=== PATIENT | male | born 1965 | race Caucasian/White ===

== ENCOUNTER 2020-08-28 11:23 | Inpatient (IN) | payer MEDICARE, OTHER ==
[2020-08-28 12:10] LABS: Basophils % (A) 1 %; Eosinophils % (A) 0 %; HCT 33.2 % (39.0-53.0); HGB 11.2 gm/dL (13.0-17.5); Lymphocytes # (A) 0.5 k/uL (1.0-4.8); Lymphocytes % (A) 11 %; MCH 30.3 pg (25.0-35.0); MCHC 33.7 g/dL (31.0-37.0); MCV 89.8 fL (80.0-100.0); Mean Platelet Volume 7.8; Monocytes # (A) 0.3 k/uL (0-1.0); Monocytes % (A) 8 %; Neutrophils # (A) 3.2 k/uL (1.3-7.7); Neutrophils % (A) 78 %; RDW 15.2 % (11.5-15.5); WBC 4.1 k/uL (3.8-10.6)
[2020-08-28 12:25] LABS: Calcium 7.8 mg/dL (8.4-10.2); Potassium 4.6 mmol/L (3.5-5.1); Total Bilirubin 1.4 mg/dL (0.2-1.3); Total Protein 6.6 g/dL (6.3-8.2)
[2020-08-28 12:40] LABS: Platelet Count 81 k/uL (150-450)
[2020-08-28] MEDS ORDERED: HEPARIN SOD,PORK IN 0.45% NACL 25,000 UNIT in 0.45% NACL 1 250ML.BAG IV SCH (13:15)
[2020-08-28] MEDS ORDERED: HEPARIN SODIUM,PORCINE 5,000 UNIT/ML 1 ML VIAL IV PRN (13:15)
--- NOTE | 2020-08-28 13:15 | ED ---
General Adult HPI - General Chief complaint: Chest Pain Stated complaint: NSTEMI/COVID+ Time Seen by Provider: 08/28/20 11:25 Source: patient, EMS Mode of arrival: EMS Limitations: no limitations - History of Present Illness Initial comments: Patient is a 55-year-old male with past medical history of diabetes, end-stage renal disease on hemodialysis Tuesday, CHF, A. fib on [place] who presents to the emergency room with reported nausea and vomiting. Patient is transferred from The hospital. He states that he has had generalized we akness, decreased by mouth intake and nausea with vomiting. Patient went into the hospital on Tuesday and was diagnosed with Covid. States the symptoms first started 9 days ago. He was discharged home however states he has not been fairing well at home. He reports to increasing symptoms. Denies any cough, shortness of breath or chest pain. He did receive his regular dialysis session yesterday but states that they took off less fluid he has his dry weight was lower. Upon evaluation in the emergency department [facility] they found the patient held elevated troponin. Patient was transferred for higher level of care and cardiology evaluation. Patient arrives denying any chest pain or shor tness of breath. Review of the patient's chart from [facility] demonstrates that the patients troponin has never been that high in the setting of renal failure. - Related Data Allergies Allergy/AdvReac Type Severity Reaction Status Date / Time codeine AdvReac Nausea & Verified 08/28/20 11:39 Vomiting Review of Systems ROS Statement: Those systems with pertinent positive or pertinent negative responses have been documented in the HPI. ROS Other: All systems not noted in ROS Statement are negative. Past Medical History Past Medical History: Atrial Fibrillation, Diabetes Mellitus, Dialysis, Hypertension, Renal Disease Additional Past Medical History / Comment(s): legally blind History of Any Multi-Drug Resistant Organisms: MRSA Date of last positivie culture/infection: 2009 MDRO Source:: nose Past Surgical History: Heart Catheterization With Stent Additional Past Surgical History / Comment(s): fistula-right forearm Past Psychological History: Depression Smoking Status: Never smoker Past Alcohol Use History: None Reported Past Drug Use History: None Reported General Exam Limitations: no limitations Course Vital Signs 08/28/20 08/28/20 08/28/20 11:27 13:00 14:15 Temperature 98.3 F Pulse Rate 68 59 L 61 Respiratory 17 16 17 Rate Blood Pressure 114/65 108/57 106/58 O2 Sat by Pulse 99 99 100 Oximetry EKG Findings - EKG Comments: EKG Findings:: EKG demonstrates A. fib with a rate of 66. QRS 98. QTC of 457. No acute ST segment elevations or depressions Medical Decision Making - Medical Decision Making Upon arrival patient is placed in a trauma bay 1. Through history and physical exam was performed. Laboratory studies were conducted and a 12-lead EKG was performed. I did review the patient's chart. Troponin is stable around 0.3. A dmission orders were placed. Discussed case with Dr. Brooks. Will placed consults for pulmonology, nephrology and cardiology. Patient remained in stable condition awaiting a bed - Lab Data Result diagrams: 08/28/20 11:53 08/28/20 11:53 Lab Results 08/28/20 08/28/20 08/28/20 Range/Units 11:53 11:53 11:53 WBC 4.1 (3.8-10.6) k/uL RBC 3.70 L (4.30-5.90) m/uL Hgb 11.2 L (13.0-17.5) gm/dL Hct 33.2 L (39.0-53.0) % MCV 89.8 (80.0-100.0) fL MCH 30.3 (25.0-35.0) pg MCHC 33.7 (31.0-37.0) g/dL RDW 15.2 (11.5-15.5) % Plt Count 81 L (150-450) k/uL MPV 7.8 Neutrophils % 78 % Lymphocytes % 11 % Monocytes % 8 % Eosinophils % 0 % Basophils % 1 % Neutrophils # 3.2 (1.3-7.7) k/uL Lymphocytes # 0.5 L (1.0-4.8) k/uL Monocytes # 0.3 (0-1.0) k/uL Eosinophils # 0.0 (0-0.7) k/uL Basophils # 0.0 (0-0.2) k/uL Manual Slide Review Performed RBC Morphology Normal Sodium 134 L (137-145) mmol/L Potassium 4.6 (3.5-5.1) mmol/L Chloride 95 L (98-107) mmol/L Carbon Dioxide 29 (22-30) mmol/L Anion Gap 10 mmol/L BUN 46 H (9-20) mg/dL Creatinine 8.80 H* (0.66-1.25) mg/dL Est GFR (CKD-EPI)AfAm 7 (>60 ml/min/1.73 sqM) Est GFR (CKD-EPI)NonAf 6 (>60 ml/min/1.73 sqM) Glucose 136 H (74-99) mg/dL Calcium 7.8 L (8.4-10.2) mg/dL Total Bilirubin 1.4 H (0.2-1.3) mg/dL AST 234 H (17-59) U/L ALT 82 H (4-49) U/L Alkaline Phosphatase 72 (38-126) U/L Troponin I 0.350 H* (0.000-0.034) ng/mL NT-Pro-B Natriuret Pep pg/mL Total Protein 6.6 (6.3-8.2) g/dL Albumin 3.0 L (3.5-5.0) g/dL 08/28/20 Range/Units 11:53 WBC (3.8-10.6) k/uL RBC (4.30-5.90) m/uL Hgb (13.0-17.5) gm/dL Hct (39.0-53.0) % MCV (80.0-100.0) fL MCH (25.0-35.0) pg MCHC (31.0-37.0) g/dL RDW (11.5-15.5) % Plt Count (150-450) k/uL MPV Neutrophils % % Lymphocytes % % Monocytes % % Eosinophils % % Basophils % % Neutrophils # (1.3-7.7) k/uL Lymphocytes # (1.0-4.8) k/uL Monocytes # (0-1.0) k/uL Eosinophils # (0-0.7) k/uL Basophils # (0-0.2) k/uL Manual Slide Review RBC Morphology Sodium (137-145) mmol/L Potassium (3.5-5.1) mmol/L Chloride (98-107) mmol/L Carbon Dioxide (22-30) mmol/L Anion Gap mmol/L BUN (9-20) mg/dL Creatinine (0.66-1.25) mg/dL Est GFR (CKD-EPI)AfAm (>60 ml/min/1.73 sqM) Est GFR (CKD-EPI)NonAf (>60 ml/min/1.73 sqM) Glucose (74-99) mg/dL Calcium (8.4-10.2) mg/dL Total Bilirubin (0.2-1.3) mg/dL AST (17-59) U/L ALT (4-49) U/L Alkaline Phosphatase (38-126) U/L Troponin I (0.000-0.034) ng/mL NT-Pro-B Natriuret Pep 57998 pg/mL Total Protein (6.3-8.2) g/dL Albumin (3.5-5.0) g/dL Disposition Clinical Impression: NSTEMI (non-ST elevated myocardial infarction), COVID-19 Disposition: ADMITTED IP TO THIS [facility] Condition: Stable Is patient prescribed a controlled substance at d/c from ED?: No Decision to Admit Reason: Admit from EC Decision Date: 08/28/20 Decision Time: 13:17
[2020-08-28] MEDS ORDERED: NALOXONE 0.4 MG/ML 1 ML VIAL IV PRN (13:34)
--- NOTE | 2020-08-28 13:55 | P.HPIM ---
History of Present Illness Chief Complaint: Nausea and vomiting This is a 55-year-old white man who was diagnosed with covert 19 infection last week Tuesday after he was exposed to people with covert 19 at a mosque activity. He has end-stage renal disease and received dialysis yesterday. He has had few episodes of diaphoresis but has not had fever at home. He denies chest pain or shortness of breath. He has been nauseated, he had some dry cough, he vomited twice today. He denies diarrhea. He has had changes in his taste and smell. He has not required oxygen earlier but today he is on 2 L of oxygen. He denies wheezing. Past Medical History Past Medical History: Atrial Fibrillation, Diabetes Mellitus, Dialysis, Hypertension, Renal Disease Additional Past Medical History / Comment(s): legally blind History of Any Multi-Drug Resistant Organisms: MRSA Date of last positivie culture/infection: 2009 MDRO Source:: nose Past Surgical History: Heart Catheterization With Stent Additional Past Surgical History / Comment(s): fistula-right forearm Past Psychological History: Depression Smoking Status: Never smoker Past Alcohol Use History: None Reported Past Drug Use History: None Reported Medications and Allergies Allergies Allergy/AdvReac Type Severity Reaction Status Date / Time codeine AdvReac Nausea & Verified 08/28/20 11:39 Vomiting Physical Exam Vitals: Vital Signs Temp Pulse Resp BP Pulse Ox 08/28/20 11:27 98.3 F 68 17 114/65 99 Intake and Output 08/27/20 08/28/20 08/28/20 22:59 06:59 14:59 Other: Weight 109 kg Constitutional: No acute distress, conversant, pleasant Eyes: Anicteric sclerae, moist conjunctiva, no lid-lag, PERRLA ENMT: NC/AT,Oropharynx clear, no erythema, exudates Neck:Supple, FROM, no masses, or JVD, No carotid bruits; No thyromegaly Lungs: Clear to auscultation, Clear to percussion, Normal respiratory effort, no accessory muscle use Cardiovascular: Heart regular in rate and rhythm, No murmurs, gallops, or rubs no peripheral edema Abdominal: Soft Nontender, nom distended, no guarding, no rebound or rigidity, Normoactive bowel sounds No hepatomegaly Skin: Normal temperature, tone, texture, turgor, No induration No subcutaneous nodules, No rash, lesions, No ulcers Extremities:No digital cyanosis No clubbing, no edema Psychiatric: Alert and oriented to person, place and time, Appropriate affect Intact judgement Neuro: Muscles Strength 5/5 in all 4 extremities, Sensation to light touch grossly present throughout, Cranial nerves II-XII grossly intact. No focal sensory deficits Results CBC & Chem 7: 08/28/20 11:53 08/28/20 11:53 Labs: Abnormal Lab Results - Last 24 Hours (Table) 08/28/20 08/28/20 08/28/20 Range/Units 11:53 11:53 11:53 RBC 3.70 L (4.30-5.90) m/uL Hgb 11.2 L (13.0-17.5) gm/dL Hct 33.2 L (39.0-53.0) % Plt Count 81 L (150-450) k/uL Lymphocytes # 0.5 L (1.0-4.8) k/uL Sodium 134 L (137-145) mmol/L Chloride 95 L (98-107) mmol/L BUN 46 H (9-20) mg/dL Creatinine 8.80 H* (0.66-1.25) mg/dL Glucose 136 H (74-99) mg/dL Calcium 7.8 L (8.4-10.2) mg/dL Total Bilirubin 1.4 H (0.2-1.3) mg/dL AST 234 H (17-59) U/L ALT 82 H (4-49) U/L Troponin I 0.350 H* (0.000-0.034) ng/mL Albumin 3.0 L (3.5-5.0) g/dL Assessment and Plan Plan: 1. 1. Acute: 19 infection with hypoxia requiring 2 L of oxygen: Oxygen, bronchodilators, dexamethasone, obtain chest x-ray, pulmonology consultation. Check LDH, d-dimer, ferritin and Procalcitonin . 2. Elevated troponin, likely associated with end-stage renal disease as well as overnight the infection: Continue to trend cardiac enzymes, cardiology consultation. 3. End-stage renal disease on hemodialysis secondary to hypertension and diabetes: Continue hemodialysis, consult nephrology. 4. Diabetes type 2 with end-stage renal disease: Place on insulin sliding scale 5. Chronic atrial fibrillation: Continue outpatient medications and monitor, cardiology consultation. 6. Mild elevation in LFTs likely associated with: 19 infection: Continue to check liver enzymes. 7. Thrombocytopenia of unknown chronicity, platelets 81, monitor Admit to inpatient DVT prophylaxis: SCDs in the setting of thrombocytopenia Disposition: Home once clinically stable
[2020-08-28] MEDS: DEXAMETHASONE SOD PHOSPHATE 10 MG/ML 1 ML VIAL IV SCH (14:26)
[2020-08-28 14:27] LABS: Glucose,Whole Blood 125 mg/dL (75-99)
[2020-08-28] MEDS: ALBUTEROL HFA INHALER INHALATION SCH ×2 (14:31→22:06)
[2020-08-28 14:47] LABS: Basophils % (A) 0 %; Eosinophils % (A) 0 %; HCT 34.1 % (39.0-53.0); HGB 10.9 gm/dL (13.0-17.5); Lymphocytes # (A) 0.6 k/uL (1.0-4.8); Lymphocytes % (A) 15 %; MCH 29.1 pg (25.0-35.0); MCV 90.9 fL (80.0-100.0); Mean Platelet Volume 8.2; Monocytes # (A) 0.3 k/uL (0-1.0); Monocytes % (A) 7 %; Neutrophils # (A) 2.8 k/uL (1.3-7.7); Neutrophils % (A) 75 %; RBC 3.75 m/uL (4.30-5.90); RDW 15.6 % (11.5-15.5); WBC 3.7 k/uL (3.8-10.6)
[2020-08-28 14:51] LABS: Platelet Count 79 k/uL (150-450)
--- NOTE | 2020-08-28 15:09 | XR ---
EXAMINATION TYPE: XR chest 1V DATE OF EXAM: 08/28/2020 CLINICAL HISTORY: Difficulty breathing covid 19 infection progress study. TECHNIQUE: Single AP portable upright view of the chest is obtained. COMPARISON: Outside chest x-ray earlier today FINDINGS: Low lung volumes and chronic parenchymal changes with patchy left greater than right bibas ilar opacities. Stable mild cardiomegaly. Osseous structures are intact. IMPRESSION: Overall stable findings, low lung volumes and cardiomegaly with patchy left greater tracey n right bibasilar acute infiltrate and/or atelectasis.
[2020-08-28 15:24] LABS: Albumin 2.8 g/dL (3.5-5.0); Calcium 7.6 mg/dL (8.4-10.2); Potassium 4.6 mmol/L (3.5-5.1); Total Bilirubin 1.4 mg/dL (0.2-1.3); Total Protein 6.2 g/dL (6.3-8.2)
[2020-08-28 16:46] LABS: Glucose,Whole Blood 161 mg/dL (75-99)
[2020-08-28] MEDS: INSULIN ASPART (NovoLOG) 100 UNIT/ML VIAL SQ SCH ×2 (16:57→20:54)
[2020-08-28 20:18] LABS: Glucose,Whole Blood 187 mg/dL (75-99)
[2020-08-28] MEDS: FENOFIBRATE 160 MG TAB PO SCH (23:58)
[2020-08-29 00:06] LABS: Ferritin 4972.2 ng/mL (22.0-322.0)
[2020-08-29] MEDS: ALBUTEROL HFA INHALER INHALATION SCH ×5 (02:37→21:19)
[2020-08-29 06:32] LABS: Glucose,Whole Blood 112 mg/dL (75-99)
[2020-08-29] MEDS: INSULIN ASPART (NovoLOG) 100 UNIT/ML VIAL SQ SCH ×4 (06:32→20:32)
[2020-08-29] MEDS: PANTOPRAZOLE 40 MG TABLET PO SCH (08:23)
[2020-08-29] MEDS: ATORVASTATIN 40 MG TAB PO SCH (08:24)
[2020-08-29] MEDS: CLOPIDOGREL 75 MG TAB PO SCH (08:24)
[2020-08-29] MEDS: EZETIMIBE 10 MG TAB PO SCH (08:24)
[2020-08-29] MEDS: DEXAMETHASONE SOD PHOSPHATE 10 MG/ML 1 ML VIAL IV SCH (08:24)
[2020-08-29 09:42] LABS: Basophils % (A) 0 %; Eosinophils % (A) 0 %; HCT 33.8 % (39.0-53.0); HGB 11.1 gm/dL (13.0-17.5); Lymphocytes # (A) 0.5 k/uL (1.0-4.8); Lymphocytes % (A) 14 %; MCHC 32.9 g/dL (31.0-37.0); MCV 91.1 fL (80.0-100.0); Mean Platelet Volume 7.9; Monocytes # (A) 0.2 k/uL (0-1.0); Monocytes % (A) 6 %; Neutrophils # (A) 2.7 k/uL (1.3-7.7); Neutrophils % (A) 78 %; RBC 3.71 m/uL (4.30-5.90); RDW 15.2 % (11.5-15.5); WBC 3.4 k/uL (3.8-10.6)
[2020-08-29 09:51] LABS: Platelet Count 75 k/uL (150-450)
[2020-08-29 09:53] LABS: INR 1.4 (<1.2); Prothrombin Time 14.2 sec (9.0-12.0)
--- NOTE | 2020-08-29 10:16 | ECHOF ---
Referral Reason:abn troponin MEASUREMENTS -------- HEIGHT: 180.3 cm WEIGHT: 108.9 kg BP: 117/65 IVSd: 1.8 cm (0.6 - 1.1) LVIDd: 5.1 cm (3.9 - 5.3) LVPWd: 2.2 cm (0.6 - 1.1) EDV(Teich): 126 ml IVSs: 2.2 cm LVIDs: 3.1 cm LVPWs: 1.8 cm %IVS Thck: 18 % ESV(Teich): 37 ml EF(Teich): 70 % %FS: 40 % SV(Teich): 89 ml LALs A4C: 7.7 cm LAAs A4C: 35.1 cm LAESV A-L A4C: 136 ml LAESV MOD A4C: 127 ml Ao Diam: 3.3 cm (2.0 - 3.7) AV Cusp: 1.7 cm (1.5 - 2.6) MV E Jerrell: 0.99 m/s MV DecT: 275 ms MV Dec Denali: 3.6 m/s MV A Jerrell: 0.80 m/s MV E/A Ratio: 1.24 MV PHT: 80 ms LVOT Vmax: 0.81 m/s LVOT maxP.62 mmHg AV Vmax: 1.40 m/s AV maxP.86 mmHg TR Vmax: 2.32 m/s TR maxP.46 mmHg RAP: 5.00 mmHg RVSP: 26.46 mmHg FINDINGS -------- Sinus rhythm. This was a technically difficult study with suboptimal views. The left ventricular size is normal. There is severe concentric left ventricular hypertrophy. Ove rall left ventricular systolic function is low-normal with, an EF between 50 - 55 %. The RV was not well visualized. The left atrium was not well visualized. The right atrium was not well visualized. 5.0mg of Lumason was utilized for enhancement of images The aortic valve was not well visualized. Aortic valve is trileaflet and is moderately thickened. There is no evidence of aortic regurgitation. There is no evidence of aortic stenosis. Mild mitral annular calcification present. No mitral regurgitation. Mild tricuspid regurgitation present. There is no evidence of pulmonary hypertension. The right v entricular systolic pressure, as measured by Doppler, is 26.46mmHg. The pulmonic valve was not well visualized. The aortic root size is normal. IVC Not well visulized. There is no pericardial effusion. CONCLUSIONS -------- 1. There is severe concentric left ventricular hypertrophy. 2. Overall left ventricular systolic function is low-normal with, an EF between 50 - 55 %. 3. Aortic valve is trileaflet and is moderately thickened. 4. Mild mitral annular calcification present. 5. Mild tricuspid regurgitation present. 6. There is no pericardial effusion. 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
[2020-08-29 10:20] LABS: Albumin 2.8 g/dL (3.5-5.0); Calcium 7.5 mg/dL (8.4-10.2); Potassium 4.4 mmol/L (3.5-5.1); Total Bilirubin 1.5 mg/dL (0.2-1.3)
[2020-08-29] MEDS ORDERED: HEPARIN SODIUM,PORCINE 5,000 UNIT/ML 1 ML VIAL ONE (11:12)
--- NOTE | 2020-08-29 11:24 | P.PN ---
Subjective Progress Note Date: 08/29/20 Feels ok , no cp no abd pain , no sob not on oxygen Objective - Vital Signs Vital signs: Vital Signs Temp 98.7 F 08/29/20 08:00 Pulse 69 08/29/20 08:00 Resp 20 08/29/20 08:00 BP 138/73 08/29/20 08:00 Pulse Ox 100 08/29/20 08:00 Intake & Output 08/28/20 08/29/20 08/29/20 18:59 06:59 18:59 Intake Total 123.606 Balance 123.606 Weight 109 kg 106.8 kg Intake: Intake, IV Titration 123.606 Amount Heparin Sod,Pork in 0.45% 123.606 NaCl 25,000 unit In 0.45 % NaCl 1 250ml.bag @ 9. 174 UNITS/KG/HR 10 mls/hr IV .Q24H [facility] Rx#: [id number] Other: # Voids 1 1 1 # Bowel Movements 1 1 - Exam Constitutional: No acute distress, conversant, pleasant Eyes: Anicteric sclerae, moist conjunctiva, no lid-lag, PERRLA ENMT: NC/AT,Oropharynx clear, no erythema, exudates Neck:Supple, FROM, no masses, or JVD, No carotid bruits; No thyromegaly Lungs: Clear to auscultation, Clear to percussion, Normal respiratory effort, no accessory muscle use Cardiovascular: Heart regular in rate and rhythm, No murmurs, gallops, or rubs no peripheral edema Abdominal: Soft Nontender, nom distended, no guarding, no rebound or rigidity, Normoactive bowel sounds Skin: Normal temperature, tone, texture, turgor, No induration No subcutaneous nodules, No rash, lesions, No ulcers Extremities:No digital cyanosis No clubbing, Pedal pulses intact and symmetrical Radial pulses intact and symmetrical Normal gait and station, No calf tenderness Psychiatric: Alert and oriented to person, place and time, Appropriate affect Intact judgement Neuro: Muscles Strength 5/5 in all 4 extremities, Sensation to light touch grossly present throughout, Cranial nerves II-XII grossly intact. No focal senso ry deficits - Labs CBC & Chem 7: 08/29/20 08:52 08/29/20 08:52 Labs: Abnormal Lab Results - Last 24 Hours (Table) 08/28/20 08/28/20 08/28/20 Range/Units 11:53 11:53 11:53 WBC (3.8-10.6) k/uL RBC 3.70 L (4.30-5.90) m/uL Hgb 11.2 L (13.0-17.5) gm/dL Hct 33.2 L (39.0-53.0) % RDW (11.5-15.5) % Plt Count 81 L (150-450) k/uL Lymphocytes # 0.5 L (1.0-4.8) k/uL PT (9.0-12.0) sec INR (<1.2) APTT (22.0-30.0) sec D-Dimer (<0.60) mg/L FEU Sodium 134 L (137-145) mmol/L Chloride 95 L (98-107) mmol/L BUN 46 H (9-20) mg/dL Creatinine 8.80 H* (0.66-1.25) mg/dL Glucose 136 H (74-99) mg/dL POC Glucose (mg/dL) (75-99) mg/dL Calcium 7.8 L (8.4-10.2) mg/dL Ferritin (22.0-322.0) ng/mL Total Bilirubin 1.4 H (0.2-1.3) mg/dL AST 234 H (17-59) U/L ALT 82 H (4-49) U/L Lactate Dehydrogenase (313-618) U/L Troponin I 0.350 H* (0.000-0.034) ng/mL Total Protein (6.3-8.2) g/dL Albumin 3.0 L (3.5-5.0) g/dL 08/28/20 08/28/20 08/28/20 Range/Units 14:19 14:19 14:19 WBC 3.7 L (3.8-10.6) k/uL RBC 3.75 L (4.30-5.90) m/uL Hgb 10.9 L (13.0-17.5) gm/dL Hct 34.1 L (39.0-53.0) % RDW 15.6 H (11.5-15.5) % Plt Count 79 L (150-450) k/uL Lymphocytes # 0.6 L (1.0-4.8) k/uL PT (9.0-12.0) sec INR (<1.2) APTT (22.0-30.0) sec D-Dimer 0.71 H (<0.60) mg/L FEU Sodium (137-145) mmol/L Chloride (98-107) mmol/L BUN (9-20) mg/dL Creatinine (0.66-1.25) mg/dL Glucose (74-99) mg/dL POC Glucose (mg/dL) (75-99) mg/dL Calcium (8.4-10.2) mg/dL Ferritin (22.0-322.0) ng/mL Total Bilirubin (0.2-1.3) mg/dL AST (17-59) U/L ALT (4-49) U/L Lactate Dehydrogenase (313-618) U/L Troponin I 0.329 H* (0.000-0.034) ng/mL Total Protein (6.3-8.2) g/dL Albumin (3.5-5.0) g/dL 08/28/20 08/28/20 08/28/20 Range/Units 14:19 14:25 16:40 WBC (3.8-10.6) k/uL RBC (4.30-5.90) m/uL Hgb (13.0-17.5) gm/dL Hct (39.0-53.0) % RDW (11.5-15.5) % Plt Count (150-450) k/uL Lymphocytes # (1.0-4.8) k/uL PT (9.0-12.0) sec INR (<1.2) APTT (22.0-30.0) sec D-Dimer (<0.60) mg/L FEU Sodium 134 L (137-145) mmol/L Chloride 95 L (98-107) mmol/L BUN 49 H (9-20) mg/dL Creatinine 8.53 H* (0.66-1.25) mg/dL Glucose 132 H (74-99) mg/dL POC Glucose (mg/dL) 125 H 161 H (75-99) mg/dL Calcium 7.6 L (8.4-10.2) mg/dL Ferritin 4972.2 H (22.0-322.0) ng/mL Total Bilirubin 1.4 H (0.2-1.3) mg/dL AST 230 H (17-59) U/L ALT 80 H (4-49) U/L Lactate Dehydrogenase 636 H (313-618) U/L Troponin I (0.000-0.034) ng/mL Total Protein 6.2 L (6.3-8.2) g/dL Albumin 2.8 L (3.5-5.0) g/dL 08/28/20 08/28/20 08/28/20 Range/Units 18:30 18:30 20:16 WBC (3.8-10.6) k/uL RBC (4.30-5.90) m/uL Hgb (13.0-17.5) gm/dL Hct (39.0-53.0) % RDW (11.5-15.5) % Plt Count (150-450) k/uL Lymphocytes # (1.0-4.8) k/uL PT (9.0-12.0) sec INR (<1.2) APTT 71.5 H (22.0-30.0) sec D-Dimer (<0.60) mg/L FEU Sodium (137-145) mmol/L Chloride (98-107) mmol/L BUN (9-20) mg/dL Creatinine (0.66-1.25) mg/dL Glucose (74-99) mg/dL POC Glucose (mg/dL) 187 H (75-99) mg/dL Calcium (8.4-10.2) mg/dL Ferritin (22.0-322.0) ng/mL Total Bilirubin (0.2-1.3) mg/dL AST (17-59) U/L ALT (4-49) U/L Lactate Dehydrogenase (313-618) U/L Troponin I 0.328 H* (0.000-0.034) ng/mL Total Protein (6.3-8.2) g/dL Albumin (3.5-5.0) g/dL 08/29/20 08/29/20 08/29/20 Range/Units 02:39 06:30 08:52 WBC 3.4 L (3.8-10.6) k/uL RBC 3.71 L (4.30-5.90) m/uL Hgb 11.1 L (13.0-17.5) gm/dL Hct 33.8 L (39.0-53.0) % RDW (11.5-15.5) % Plt Count 75 L (150-450) k/uL Lymphocytes # 0.5 L (1.0-4.8) k/uL PT (9.0-12.0) sec INR (<1.2) APTT >200.0 H* (22.0-30.0) sec D-Dimer (<0.60) mg/L FEU Sodium (137-145) mmol/L Chloride (98-107) mmol/L BUN (9-20) mg/dL Creatinine (0.66-1.25) mg/dL Glucose (74-99) mg/dL POC Glucose (mg/dL) 112 H (75-99) mg/dL Calcium (8.4-10.2) mg/dL Ferritin (22.0-322.0) ng/mL Total Bilirubin (0.2-1.3) mg/dL AST (17-59) U/L ALT (4-49) U/L Lactate Dehydrogenase (313-618) U/L Troponin I (0.000-0.034) ng/mL Total Protein (6.3-8.2) g/dL Albumin (3.5-5.0) g/dL 08/29/20 08/29/20 Range/Units 08:52 08:52 WBC (3.8-10.6) k/uL RBC (4.30-5.90) m/uL Hgb (13.0-17.5) gm/dL Hct (39.0-53.0) % RDW (11.5-15.5) % Plt Count (150-450) k/uL Lymphocytes # (1.0-4.8) k/uL PT 14.2 H (9.0-12.0) sec INR 1.4 H (<1.2) APTT (22.0-30.0) sec D-Dimer (<0.60) mg/L FEU Sodium (137-145) mmol/L Chloride 97 L (98-107) mmol/L BUN 59 H (9-20) mg/dL Creatinine 9.81 H* (0.66-1.25) mg/dL Glucose 115 H (74-99) mg/dL POC Glucose (mg/dL) (75-99) mg/dL Calcium 7.5 L (8.4-10.2) mg/dL Ferritin (22.0-322.0) ng/mL Total Bilirubin 1.5 H (0.2-1.3) mg/dL AST 211 H (17-59) U/L ALT 77 H (4-49) U/L Lactate Dehydrogenase (313-618) U/L Troponin I (0.000-0.034) ng/mL Total Protein 6.0 L (6.3-8.2) g/dL Albumin 2.8 L (3.5-5.0) g/dL Assessment and Plan Plan: 1. Acute: 19 infection with hypoxia requiring 2 L of oxygen: Oxygen, bronchodilators, dexamethasone, pulmonology consultation. Bilateral infiltrates 2. Elevated troponin, likely associated with end-stage renal disease as well as overnight the infection: cardiology consultation.ECHO EF 55% 3. End-stage renal disease on hemodialysis secondary to hypertension and diabetes: Continue hemodialysis, consult nephrology input appreciated. 4. Diabetes type 2 with end-stage renal disease:continue on insulin sliding scale 5. Chronic atrial fibrillation: Continue outpatient medications and monitor, cardiology consultation. 6. Mild elevation in LFTs likely associated with: 19 infection: Continue to check liver enzymes. 7. Thrombocytopenia of unknown chronicity, monitor Admit to inpatient DVT prophylaxis: SCDs in the setting of thrombocytopenia Disposition: Home once clinically stable
--- NOTE | 2020-08-29 11:40 | P.CRDCN ---
History of Present Illness Consult date: 08/29/20 Reason for Consult (text): Abnormal troponins Chief complaint: Nausea, cough History of present illness: This is a pleasant 55-year-old gentleman with a documented history of persistent atrial fibrillation, diabetes, hypertension, hyperlipidemia, he is legally blind, history of MRSA, coronary artery disease with prior stent placement, depression, end-stage renal disease on hemodialysis. Patient was just recently diagnosed with a cold that, he states that he had exposure to cold at his caodaism. He presented to the hospital on this occasion with symptoms of nausea and vomiting, patient also has had intermittent episodes of diaphoresis and possible fever at home. Cardiology consultation was requested because of abnormality in troponin. His EKG on presentation here showed atrial fibrillation with a heart rate in the 60s. Chest x-ray showed bibasilar infiltrates. Blood pressure 117/60 with a heart rate in the 50s, 92% on room air. White blood cell count 3.7, hemoglobin 10.9, platelet count 79. D-dimer 0.71, sodium 134, potassium 4.6, BUN 49, creatinine 8.5. Troponins 0.3, 0.3, 0.3, BNP level 10, 100., ALT 80 AST 2:30 total bilirubin 1.4 and ferritin level of 4972. At the time of my examination this morning, patient continues to have a persistent cough, he denies having any chest discomfort, he does admit to having occasional times where he feels his heart racing fast. An echocardiogram with Doppler study was performed which revealed an ejection fraction of 50-55%. Past Medical History Past Medical History: Atrial Fibrillation, Diabetes Mellitus, Dialysis, Hypertension, Renal Disease Additional Past Medical History / Comment(s): legally blind History of Any Multi-Drug Resistant Organisms: MRSA Date of last positivie culture/infection: 2009 MDRO Source:: nose Past Surgical History: Heart Catheterization With Stent Additional Past Surgical History / Comment(s): fistula-right forearm, eye surgery Past Anesthesia/Blood Transfusion Reactions: No Reported Reaction Date of Last Stent Placement:: 2016 Past Psychological History: Depression Smoking Status: Never smoker Past Alcohol Use History: None Reported Past Drug Use History: None Reported - Past Family History Father Family Medical History: Pneumonia Mother Family Medical History: Cancer, Diabetes Mellitus, Dialysis Medications and Allergies Home Medications Medication Instructions Recorded Confirmed Type Apixaban [Eliquis] 2.5 mg PO BID 08/28/20 08/28/20 History Atorvastatin [Lipitor] 40 mg PO DAILY 08/28/20 08/28/20 History Calcium Acetate [Phoslo] 2,001 mg PO TID-W/MEALS 08/28/20 08/28/20 History Cinacalcet HCl 30 mg PO MOTUWETHFR 08/28/20 08/28/20 History Clopidogrel [Plavix] 75 mg PO DAILY 08/28/20 08/28/20 History Diphenoxylate HCl/Atropine 1 tab PO Q8H PRN 08/28/20 08/28/20 History [Lomotil 2.5-0.025 mg Tablet] Ezetimibe [Zetia] 10 mg PO DAILY 08/28/20 08/28/20 History Fenofibrate [Lofibra] 145 mg PO HS 08/28/20 08/28/20 History Midodrine HCl [ProAmatine] 5 - 10 mg PO DAILY PRN 08/28/20 08/28/20 History Pantoprazole Sodium [Protonix] 40 mg PO DAILY 08/28/20 08/28/20 History sitaGLIPtin [Januvia] 25 mg PO DAILY 08/28/20 08/28/20 History Allergies Allergy/AdvReac Type Severity Reaction Status Date / Time codeine AdvReac Nausea & Verified 08/28/20 11:39 Vomiting Physical Exam Vitals: Vital Signs Temp Pulse Pulse Resp BP BP Pulse Ox 08/29/20 08:00 98.7 F 69 20 138/73 100 08/29/20 04:00 97.6 F 56 L 18 117/65 92 L 08/29/20 00:00 97.8 F 71 18 139/74 95 08/28/20 20:00 97.4 F L 75 18 147/69 96 08/28/20 16:20 98.6 F 69 18 127/63 92 L 08/28/20 15:30 72 18 116/67 08/28/20 15:00 66 13 102/51 08/28/20 14:33 62 21 102/51 99 08/28/20 14:15 61 17 106/58 100 08/28/20 13:00 59 L 16 108/57 99 Intake and Output 08/28/20 08/29/20 08/29/20 22:59 06:59 14:59 Intake Total 73.167 50.439 Balance 73.167 50.439 Intake: Intake, IV Titration 73.167 50.439 Amount Heparin Sod,Pork in 0.45% 73.167 50.439 NaCl 25,000 unit In 0.45 % NaCl 1 250ml.bag @ 9. 174 UNITS/KG/HR 10 mls/hr IV .Q24H [facility] Rx#: [id number] Other: # Voids 1 1 1 # Bowel Movements 1 1 Weight 109 kg 106.8 kg PHYSICAL EXAMINATION: GENERAL: 55-year-old gentleman in no acute distress at the time of my examination HEENT: Head is atraumatic, normocephalic. Pupils equal, round. Patient is legally blind. Sclera anicteric. Conjunctiva are clear. Mucous membranes of the mouth are moist. Neck is supple. There is no elevated jugular venous pressure. No carotid bruit is heard. HEART EXAMINATION: S1 and S2 irregularly irregular a soft systolic murmur heard CHEST EXAMINATION: Lungs reveal crackles bilaterally to the bases. Decreased air exchange ABDOMEN: Soft, nontender. Bowel sounds are heard. No organomegaly noted. EXTREMITIES: 2+ peripheral pulses with no evidence of peripheral edema and no calf tenderness noted. NEUROLOGIC patient is awake, alert and oriented 3 . . Results 08/29/20 08:52 08/29/20 08:52 Cardiac Enzymes 08/28/20 08/28/20 08/28/20 Range/Units 11:53 11:53 14:19 AST 234 H (17-59) U/L Lactate Dehydrogenase (313-618) U/L Troponin I 0.350 H* 0.329 H* (0.000-0.034) ng/mL 08/28/20 08/28/20 08/29/20 Range/Units 14:19 18:30 08:52 AST 230 H 211 H (17-59) U/L Lactate Dehydrogenase 636 H (313-618) U/L Troponin I 0.328 H* (0.000-0.034) ng/mL Coagulation 08/28/20 08/29/20 08/29/20 Range/Units 18:30 02:39 08:52 PT 14.2 H (9.0-12.0) sec APTT 71.5 H >200.0 H* (22.0-30.0) sec CBC 08/28/20 08/28/20 08/29/20 Range/Units 11:53 14:19 08:52 WBC 4.1 3.7 L 3.4 L (3.8-10.6) k/uL RBC 3.70 L 3.75 L 3.71 L (4.30-5.90) m/uL Hgb 11.2 L 10.9 L 11.1 L (13.0-17.5) gm/dL Hct 33.2 L 34.1 L 33.8 L (39.0-53.0) % Plt Count 81 L 79 L 75 L (150-450) k/uL Comprehensive Metabolic Panel 08/28/20 08/28/20 08/29/20 Range/Units 11:53 14:19 08:52 Sodium 134 L 134 L 137 (137-145) mmol/L Potassium 4.6 4.6 4.4 (3.5-5.1) mmol/L Chloride 95 L 95 L 97 L (98-107) mmol/L Carbon Dioxide 29 28 28 (22-30) mmol/L BUN 46 H 49 H 59 H (9-20) mg/dL Creatinine 8.80 H* 8.53 H* 9.81 H* (0.66-1.25) mg/dL Glucose 136 H 132 H 115 H (74-99) mg/dL Calcium 7.8 L 7.6 L 7.5 L (8.4-10.2) mg/dL AST 234 H 230 H 211 H (17-59) U/L ALT 82 H 80 H 77 H (4-49) U/L Alkaline Phosphatase 72 70 66 (38-126) U/L Total Protein 6.6 6.2 L 6.0 L (6.3-8.2) g/dL Albumin 3.0 L 2.8 L 2.8 L (3.5-5.0) g/dL Current Medications Generic Name Dose Route Start Last Admin Trade Name Freq PRN Reason Stop Dose Admin Albuterol Sulfate 2 puff 08/28/20 14:00 08/29/20 08:14 Albuterol Hfa Inhaler INHALATION Not Given Q6H [facility] Atorvastatin Calcium 40 mg 08/29/20 09:00 08/29/20 08:24 Atorvastatin 40 Mg Tab PO 40 mg DAILY LISA Administration Clopidogrel Bisulfate 75 mg 08/29/20 09:00 08/29/20 08:24 Clopidogrel 75 Mg Tab PO 75 mg DAILY LISA Administration Dexamethasone Sodium Phosphate 6 mg 08/28/20 14:00 08/29/20 08:24 Dexamethasone Sod Phosphate 10 Mg/Ml 1 Ml Vial IV 6 mg DAILY LISA Administration Ezetimibe 10 mg 08/29/20 09:00 08/29/20 08:24 Ezetimibe 10 Mg Tab PO 10 mg DAILY LISA Administration Fenofibrate 160 mg 08/28/20 22:58 08/28/20 23:58 Fenofibrate 160 Mg Tab PO 160 mg HS LISA Administration Heparin Sodium (Porcine) 0 unit 08/28/20 13:15 Heparin Sodium,Porcine 5,000 Unit/Ml 1 Ml Vial IV PER PROTOCOL PRN Low PTT Protocol Heparin Sodium/Sodium Chloride 250 mls @ 10 mls/hr 08/28/20 13:15 08/29/20 05:29 25,000 unit/ Sodium Chloride IV 4.174 units/kg/hr .Q24H LISA 4.55 mls/hr Titration Protocol 9.174 UNITS/KG/HR Insulin Aspart 0 unit 08/28/20 17:30 08/29/20 06:32 Insulin Aspart (Novolog) 100 Unit/Ml Vial SQ Not Given ACHS LISA Protocol Naloxone HCl 0.2 mg 08/28/20 13:34 Naloxone 0.4 Mg/Ml 1 Ml Vial IV Q2M PRN Opioid Reversal Pantoprazole Sodium 40 mg 08/29/20 09:00 08/29/20 08:23 Pantoprazole 40 Mg Tablet PO 40 mg DAILY LISA Administration Intake and Output 08/28/20 08/29/20 08/29/20 22:59 06:59 14:59 Intake Total 73.167 50.439 Balance 73.167 50.439 Intake: Intake, IV Titration 73.167 50.439 Amount Heparin Sod,Pork in 0.45% 73.167 50.439 NaCl 25,000 unit In 0.45 % NaCl 1 250ml.bag @ 9. 174 UNITS/KG/HR 10 mls/hr IV .Q24H [facility] Rx#: [id number] Other: # Voids 1 1 1 # Bowel Movements 1 1 Weight 109 kg 106.8 kg 08/29/20 08:52 08/29/20 08:52 EKG Interpretations (text) EKG shows atrial fibrillation with a controlled ventricular response Assessment and Plan Plan: Assessment and plan #1 Aciute COVID 19 infection #2 chronic persistent atrial fibrillation #3 end-stage renal disease on hemodialysis #4 elevation in troponin, not consistent with acute coronary syndrome, likely secondary to end-stage renal disease #5 diabetes #6 hypertension #7 hyperlipidemia #8 coronary artery disease with prior stent placement #9 elevation in LFTs, likely associated with briones virus #10 thrombocytopenia Plan Echocardiogram with Doppler study was performed which revealed a normal left ventricular systolic function. We will continue the patient on Plavix, resume Eliquis 2-1/2 mg one tablet by mouth twice a day, continue Lipitor 40 mg daily, that he, discontinue IV heparin. We will follow this patient along with you now on an as-needed basis only, please don't hesitate to call with any questions. DNP note has been reviewed, I agree with a documented findings and plan of care. Patient was seen and examined.
[2020-08-29 12:08] LABS: Glucose,Whole Blood 143 mg/dL (75-99)
--- NOTE | 2020-08-29 14:01 | P.CNPUL ---
History of Present Illness Consult date: 08/29/20 Requesting physician: Elisha Brooks Reason for consult: dyspnea, abnormal CXR/CT Chief complaint: Nausea, vomiting, shortness of breath History of present illness: This is a very pleasant 55-year-old gentleman who has a history of end-stage renal disease on hemodialysis Tuesday, diabetes mellitus, hypertension, congestive heart failure, atrial fibrillation anticoagulated. He has been slow To the hospital with complaints of nausea vomiting or breath. He was found to have elevated troponins and transferred here for higher level of care. His symptoms started over 1-1/2 weeks ago. He reportedly tested positive for CoVID at [facility]. He feels he may have got it while attending judaism. He is a lifelong nonsmoker. Chest x-ray here reveals low lung volumes and cardiomegaly with patchy left greater than right basilar acute infiltrate/atelectasis. He is seen today in consultation on the selective care unit. He is currently sitting up in bed. Awake and alert in no acute distress. He is maintaining O2 saturations up to 100% on room air. He's been afebrile. Hemodynamically stable. Echocardiogram reveals preserved left ventricular systolic function with an ejection fraction 50-55%. White count 3.4. Hemoglobin 11.1. Platelet count 75,000. Lymphocytes 0.5. Sodium 137. Potassium 4.4. Creatinine 9.81. ProBNP 10,100. Pro-calcitonin 1.59. Tr oponins 0.35, 0.32, 0.32. Heparin drip has been discontinued. Review of Systems REVIEW OF SYSTEMS: CONSTITUTIONAL: Denies any recent significant weight loss or weight gain. EYES: Denies change in vision. EARS, NOSE, MOUTH, THROAT: Denies headaches, denies sore throat. CARDIOVASCULAR: Positive for chest pain, no palpitations or syncopal episodes. RESPIRATORY: Positive for shortness of breath, no cough, congestion or hemoptysis. GASTROINTESTINAL: Positive for nausea, vomiting GENITOURINARY: Denies hematuria, denies infections. MUSKULOSKELETAL: Denies pain, denies swelling. INTEGUMENTARY: Denies rash, denies eczema. NEUROLOGICAL: Denies recent memory loss, no recent seizure activity. PSYCHIATRIC: Denies anxiety, denies depression. HEMATOLOGIC/LYMPHATIC: Denies anemia, denies enlarged lymph nodes. Past Medical History Past Medical History: Atrial Fibrillation, Diabetes Mellitus, Dialysis, Hypertension, Renal Disease Additional Past Medical History / Comment(s): legally blind History of Any Multi-Drug Resistant Organisms: MRSA Date of last positivie culture/infection: 2009 MDRO Source:: nose Past Surgical History: Heart Catheterization With Stent Additional Past Surgical History / Comment(s): fistula-right forearm, eye surgery Past Anesthesia/Blood Transfusion Reactions: No Reported Reaction Date of Last Stent Placement:: 2016 Past Psychological History: Depression Smoking Status: Never smoker Past Alcohol Use History: None Reported Past Drug Use History: None Reported - Past Family History Father Family Medical History: Pneumonia Mother Family Medical History: Cancer, Diabetes Mellitus, Dialysis Medications and Allergies Home Medications Medication Instructions Recorded Confirmed Type Apixaban [Eliquis] 2.5 mg PO BID 08/28/20 08/28/20 History Atorvastatin [Lipitor] 40 mg PO DAILY 08/28/20 08/28/20 History Calcium Acetate [Phoslo] 2,001 mg PO TID-W/MEALS 08/28/20 08/28/20 History Cinacalcet HCl 30 mg PO MOTUWETHFR 08/28/20 08/28/20 History Clopidogrel [Plavix] 75 mg PO DAILY 08/28/20 08/28/20 History Diphenoxylate HCl/Atropine 1 tab PO Q8H PRN 08/28/20 08/28/20 History [Lomotil 2.5-0.025 mg Tablet] Ezetimibe [Zetia] 10 mg PO DAILY 08/28/20 08/28/20 History Fenofibrate [Lofibra] 145 mg PO HS 08/28/20 08/28/20 History Midodrine HCl [ProAmatine] 5 - 10 mg PO DAILY PRN 08/28/20 08/28/20 History Pantoprazole Sodium [Protonix] 40 mg PO DAILY 08/28/20 08/28/20 History sitaGLIPtin [Januvia] 25 mg PO DAILY 08/28/20 08/28/20 History Allergies Allergy/AdvReac Type Severity Reaction Status Date / Time codeine AdvReac Nausea & Verified 08/28/20 11:39 Vomiting Physical Exam Vitals: Vital Signs Temp Pulse Pulse Resp BP BP Pulse Ox 08/29/20 12:00 98 F 59 L 20 167/80 100 08/29/20 08:00 98.7 F 69 20 138/73 100 08/29/20 04:00 97.6 F 56 L 18 117/65 92 L 08/29/20 00:00 97.8 F 71 18 139/74 95 08/28/20 20:00 97.4 F L 75 18 147/69 96 08/28/20 16:20 98.6 F 69 18 127/63 92 L 08/28/20 15:30 72 18 116/67 08/28/20 15:00 66 13 102/51 08/28/20 14:33 62 21 102/51 99 08/28/20 14:15 61 17 106/58 100 Intake and Output 08/28/20 08/29/20 08/29/20 22:59 06:59 14:59 Intake Total 73.167 50.439 Balance 73.167 50.439 Intake: Intake, IV Titration 73.167 50.439 Amount Heparin Sod,Pork in 0.45% 73.167 50.439 NaCl 25,000 unit In 0.45 % NaCl 1 250ml.bag @ 9. 174 UNITS/KG/HR 10 mls/hr IV .Q24H [facility] Rx#: [id number] Other: # Voids 1 1 1 # Bowel Movements 1 1 Weight 109 kg 106.8 kg GENERAL EXAM: Alert, pleasant 55-year-old gentleman, on room air with O2 saturation 100%, comfortable in no apparent distress. HEAD: Normocephalic. EYES: Normal reaction of pupils, equal size. NOSE: Clear with pink turbinates. THROAT: No erythema or exudates. NECK: No masses, no JVD. CHEST: No chest wall deformity. LUNGS: Equal air entry with no crackles, wheeze, rhonchi or dullness. CVS: S1 and S2 normal with no audible murmur, regular rhythm. ABDOMEN: No hepatosplenomegaly, normal bowel sounds, no guarding or rigidity. SPINE: No scoliosis or deformity SKIN: No rashes CENTRAL NERVOUS SYSTEM: No focal deficits, tone is normal in all 4 extremities. EXTREMITIES: There is no peripheral edema. No clubbing, no cyanosis. Peripheral pulses are intact. Results - Laboratory Findings CBC and BMP: 08/29/20 08:52 08/29/20 08:52 PT/INR, D-dimer PT 14.2 sec (9.0-12.0) H 08/29/20 08:52 INR 1.4 (<1.2) H 08/29/20 08:52 D-Dimer 0.71 mg/L FEU (<0.60) H 08/28/20 14:19 Abnormal lab findings: Abnormal Labs 08/28/20 08/28/20 08/28/20 11:53 11:53 11:53 WBC RBC 3.70 L Hgb 11.2 L Hct 33.2 L RDW Plt Count 81 L Lymphocytes # 0.5 L PT INR APTT D-Dimer Sodium 134 L Chloride 95 L BUN 46 H Creatinine 8.80 H* Glucose 136 H POC Glucose (mg/dL) Calcium 7.8 L Ferritin Total Bilirubin 1.4 H AST 234 H ALT 82 H Lactate Dehydrogenase Troponin I 0.350 H* Total Protein Albumin 3.0 L Procalcitonin 08/28/20 08/28/20 08/28/20 14:19 14:19 14:19 WBC 3.7 L RBC 3.75 L Hgb 10.9 L Hct 34.1 L RDW 15.6 H Plt Count 79 L Lymphocytes # 0.6 L PT INR APTT D-Dimer 0.71 H Sodium Chloride BUN Creatinine Glucose POC Glucose (mg/dL) Calcium Ferritin Total Bilirubin AST ALT Lactate Dehydrogenase Troponin I 0.329 H* Total Protein Albumin Procalcitonin 08/28/20 08/28/20 08/28/20 14:19 14:19 14:25 WBC RBC Hgb Hct RDW Plt Count Lymphocytes # PT INR APTT D-Dimer Sodium 134 L Chloride 95 L BUN 49 H Creatinine 8.53 H* Glucose 132 H POC Glucose (mg/dL) 125 H Calcium 7.6 L Ferritin 4972.2 H Total Bilirubin 1.4 H AST 230 H ALT 80 H Lactate Dehydrogenase 636 H Troponin I Total Protein 6.2 L Albumin 2.8 L Procalcitonin 1.59 H 08/28/20 08/28/20 08/28/20 16:40 18:30 18:30 WBC RBC Hgb Hct RDW Plt Count Lymphocytes # PT INR APTT 71.5 H D-Dimer Sodium Chloride BUN Creatinine Glucose POC Glucose (mg/dL) 161 H Calcium Ferritin Total Bilirubin AST ALT Lactate Dehydrogenase Troponin I 0.328 H* Total Protein Albumin Procalcitonin 08/28/20 08/29/20 08/29/20 20:16 02:39 06:30 WBC RBC Hgb Hct RDW Plt Count Lymphocytes # PT INR APTT >200.0 H* D-Dimer Sodium Chloride BUN Creatinine Glucose POC Glucose (mg/dL) 187 H 112 H Calcium Ferritin Total Bilirubin AST ALT Lactate Dehydrogenase Troponin I Total Protein Albumin Procalcitonin 08/29/20 08/29/20 08/29/20 08:52 08:52 08:52 WBC 3.4 L RBC 3.71 L Hgb 11.1 L Hct 33.8 L RDW Plt Count 75 L Lymphocytes # 0.5 L PT 14.2 H INR 1.4 H APTT D-Dimer Sodium Chloride 97 L BUN 59 H Creatinine 9.81 H* Glucose 115 H POC Glucose (mg/dL) Calcium 7.5 L Ferritin Total Bilirubin 1.5 H AST 211 H ALT 77 H Lactate Dehydrogenase Troponin I Total Protein 6.0 L Albumin 2.8 L Procalcitonin 08/29/20 12:06 WBC RBC Hgb Hct RDW Plt Count Lymphocytes # PT INR APTT D-Dimer Sodium Chloride BUN Creatinine Glucose POC Glucose (mg/dL) 143 H Calcium Ferritin Total Bilirubin AST ALT Lactate Dehydrogenase Troponin I Total Protein Albumin Procalcitonin - Diagnostic Findings Chest x-ray: image reviewed Assessment and Plan Assessment: 1 Acute CoVID 19 infection, outside the window for Remdesivir 2 Troponin leak secondary to most likely end-stage renal disease 3 History of atrial fibrillation, anticoagulated with Eliquis 4 Diabetes mellitus 5 End-stage renal disease receiving hemodialysis Tuesday 6 History of coronary artery disease with previous stent placement 7 Hypertension 8 Hyperlipidemia 9 Elevated inflammatory markers secondary to CoVID 19 [place]: The patient was seen and evaluated by Dr. Hamilton Chest x-ray and labs reviewed The patient is outside the window for Remdesivir We'll add dexamethasone, Pepcid, melatonin, vitamin C, vitamin D, zinc Anticoagulated with Eliquis We'll continue to follow and make further recommendations based on his clinical status I, the cosigning physician, performed a history & physical examination of the patient. Lungs sounds are clear. Maintaining good O2 saturations in the 90s on room air. I discussed the assessment and plan of care with my nurse practitioner, Petra Chin. I attest to the above note as dictated by her. Time with Patient: Greater than 30
[2020-08-29] MEDS ORDERED: MIDODRINE 5 MG TAB PO PRN (14:07)
--- NOTE | 2020-08-29 14:52 | P.NPCON ---
History of Present Illness - Reason for Consult Consult date: 08/29/20 end stage renal disease - Chief Complaint Nausea vomiting - History of Present Illness ESRD TTS coming to the hospital with nausea vomiting. Diagnosed with covid. Nephrology consultation for dialysis. Review of Systems Constitutional: Reports as per HPI Past Medical History Past Medical History: Atrial Fibrillation, Diabetes Mellitus, Dialysis, Hypertension, Renal Disease Additional Past Medical History / Comment(s): legally blind History of Any Multi-Drug Resistant Organisms: MRSA Date of last positivie culture/infection: 2009 MDRO Source:: nose Past Surgical History: Heart Catheterization With Stent Additional Past Surgical History / Comment(s): fistula-right forearm, eye surgery Past Anesthesia/Blood Transfusion Reactions: No Reported Reaction Date of Last Stent Placement:: 2016 Past Psychological History: Depression Smoking Status: Never smoker Past Alcohol Use History: None Reported Past Drug Use History: None Reported - Past Family History Father Family Medical History: Pneumonia Mother Family Medical History: Cancer, Diabetes Mellitus, Dialysis Medications and Allergies Home Medications Medication Instructions Recorded Confirmed Type Apixaban [Eliquis] 2.5 mg PO BID 08/28/20 08/28/20 History Atorvastatin [Lipitor] 40 mg PO DAILY 08/28/20 08/28/20 History Calcium Acetate [Phoslo] 2,001 mg PO TID-W/MEALS 08/28/20 08/28/20 History Cinacalcet HCl 30 mg PO MOTUWETHFR 08/28/20 08/28/20 History Clopidogrel [Plavix] 75 mg PO DAILY 08/28/20 08/28/20 History Diphenoxylate HCl/Atropine 1 tab PO Q8H PRN 08/28/20 08/28/20 History [Lomotil 2.5-0.025 mg Tablet] Ezetimibe [Zetia] 10 mg PO DAILY 08/28/20 08/28/20 History Fenofibrate [Lofibra] 145 mg PO HS 08/28/20 08/28/20 History Midodrine HCl [ProAmatine] 5 - 10 mg PO DAILY PRN 08/28/20 08/28/20 History Pantoprazole Sodium [Protonix] 40 mg PO DAILY 08/28/20 08/28/20 History sitaGLIPtin [Januvia] 25 mg PO DAILY 08/28/20 08/28/20 History Allergies Allergy/AdvReac Type Severity Reaction Status Date / Time codeine AdvReac Nausea & Verified 08/28/20 11:39 Vomiting Physical Exam Vitals: Vital Signs Temp Pulse Pulse Resp BP BP Pulse Ox 08/29/20 12:00 98 F 59 L 20 167/80 100 08/29/20 08:00 98.7 F 69 20 138/73 100 08/29/20 04:00 97.6 F 56 L 18 117/65 92 L 08/29/20 00:00 97.8 F 71 18 139/74 95 08/28/20 20:00 97.4 F L 75 18 147/69 96 08/28/20 16:20 98.6 F 69 18 127/63 92 L 08/28/20 15:30 72 18 116/67 08/28/20 15:00 66 13 102/51 Intake and Output 08/28/20 08/29/20 08/29/20 22:59 06:59 14:59 Intake Total 73.167 50.439 Balance 73.167 50.439 Intake: Intake, IV Titration 73.167 50.439 Amount Heparin Sod,Pork in 0.45% 73.167 50.439 NaCl 25,000 unit In 0.45 % NaCl 1 250ml.bag @ 9. 174 UNITS/KG/HR 10 mls/hr IV .Q24H [facility] Rx#: [id number] Other: # Voids 1 1 1 # Bowel Movements 1 1 Weight 109 kg 106.8 kg Limited secondary to covid, to limit PPE Results - Lab Results Most recent lab results Calcium 7.5 mg/dL (8.4-10.2) L 08/29/20 08:52 08/29/20 08:52 08/29/20 08:52 Assessment and Plan Assessment: #1 ESRD TTS #2 hypertension with ESRD #3 anemia with ESRD #4 metabolic bone disease with ESRD #5: COVID on 2L o2 Plan: #1 HD today, plan again on Tuesday as per outpatient schedule #2 midodrine for hemodynamic support
[2020-08-29 16:54] LABS: Glucose,Whole Blood 112 mg/dL (75-99)
[2020-08-29] MEDS: ASCORBIC ACID 500 MG TAB PO SCH (17:07)
[2020-08-29] MEDS: ZINC SULFATE 220 MG CAP PO SCH (17:07)
[2020-08-29] MEDS: CHOLECALCIFEROL 1,000 UNIT TAB PO SCH (17:07)
[2020-08-29 20:30] LABS: Glucose,Whole Blood 121 mg/dL (75-99)
[2020-08-29] MEDS: FAMOTIDINE 20 MG TAB PO SCH (20:41)
[2020-08-29] MEDS: FENOFIBRATE 160 MG TAB PO SCH (20:41)
[2020-08-29] MEDS: APIXABAN 2.5 MG TABLET PO SCH (20:41)
[2020-08-29] MEDS: MELATONIN 5 MG TABLET PO SCH (20:41)
[2020-08-29] MEDS ORDERED: FENOFIBRATE 160 MG TAB PO SCH (21:00)
[2020-08-29] MEDS ORDERED: ONDANSETRON 4 MG/2 ML VIAL IVP PRN (23:35)
[2020-08-29] MEDS ORDERED: ACETAMINOPHEN TAB 325 MG TAB PO PRN (23:58)
[2020-08-30] MEDS: ALBUTEROL HFA INHALER INHALATION SCH ×4 (03:49→19:47)
[2020-08-30 06:24] LABS: Glucose,Whole Blood 101 mg/dL (75-99)
[2020-08-30] MEDS: INSULIN ASPART (NovoLOG) 100 UNIT/ML VIAL SQ SCH ×4 (06:31→21:14)
[2020-08-30 09:23] LABS: Basophils % (A) 0 %; Eosinophils % (A) 0 %; HCT 33.7 % (39.0-53.0); HGB 10.8 gm/dL (13.0-17.5); Lymphocytes # (A) 0.3 k/uL (1.0-4.8); Lymphocytes % (A) 8 %; MCH 29.2 pg (25.0-35.0); MCHC 32.1 g/dL (31.0-37.0); MCV 91.1 fL (80.0-100.0); Mean Platelet Volume 7.7; Monocytes # (A) 0.2 k/uL (0-1.0); Monocytes % (A) 5 %; Neutrophils # (A) 3.3 k/uL (1.3-7.7); Neutrophils % (A) 85 %; Platelet Count 102 k/uL (150-450); RDW 15.5 % (11.5-15.5); WBC 3.8 k/uL (3.8-10.6)
[2020-08-30 09:32] LABS: Albumin 2.5 g/dL (3.5-5.0); Calcium 7.5 mg/dL (8.4-10.2); Potassium 4.1 mmol/L (3.5-5.1); Total Bilirubin 1.5 mg/dL (0.2-1.3); Total Protein 5.7 g/dL (6.3-8.2)
--- NOTE | 2020-08-30 09:38 | P.PN ---
Subjective Progress Note Date: 08/30/20 Feels ok , no cp no abd pain , no sob not on oxygen T-max 100.3 last night. Currently afebrile. He feels much better today. Objective - Vital Signs Vital signs: Vital Signs Temp 98.7 F 08/30/20 04:00 Pulse 95 08/30/20 04:00 Resp 18 08/30/20 04:00 BP 138/69 08/30/20 04:00 Pulse Ox 96 08/30/20 04:00 Intake & Output 08/29/20 08/30/20 08/30/20 18:59 06:59 18:59 Intake Total 16 Output Total 0 Balance 16 Weight 108 kg Intake: IV 16 Heparin Sod,Pork in 0.45% 16 NaCl 25,000 unit In 0.45 % NaCl 1 250ml.bag @ 9. 174 UNITS/KG/HR 10 mls/hr IV .Q24H [facility] Rx#: [id number] Oral 0 Output: Hemodialysis 0 Other: # Voids 1 # Bowel Movements 1 1 - Exam Constitutional: No acute distress, conversant, pleasant Eyes: Anicteric sclerae, moist conjunctiva, no lid-lag, PERRLA ENMT: NC/AT Neck:Supple, FROM, no masses, or JVD Lungs: Clear to auscultation, Clear to percussion, Normal respiratory effort, no accessory muscle use Cardiovascular: Heart regular in rate and rhythm, No murmurs, gallops, or rubs no peripheral edema Abdominal: Soft Nontender, non distended, no guarding, no rebound or rigidity, Normoactive bowel sounds Skin: Normal temperature, tone, texture, turgor Extremities:No digital cyanosis No clubbing, Pedal pulses intact and symmetrical Radial pulses intact and symmetrical Normal gait and station, No calf tenderness Psychiatric: Alert and oriented to person, place and time, Appropriate affect Intact judgement Neuro: Muscles Strength 5/5 in all 4 extremities, Sensation to light touch grossly present throughout, Cranial nerves II-XII grossly intact. No focal sensory deficits - Labs CBC & Chem 7: 08/30/20 08:13 08/29/20 08:52 Labs: Abnormal Lab Results - Last 24 Hours (Table) 08/28/20 08/29/20 08/29/20 Range/Units 14:19 08:52 08:52 WBC 3.4 L (3.8-10.6) k/uL RBC 3.71 L (4.30-5.90) m/uL Hgb 11.1 L (13.0-17.5) gm/dL Hct 33.8 L (39.0-53.0) % Plt Count 75 L (150-450) k/uL Lymphocytes # 0.5 L (1.0-4.8) k/uL PT 14.2 H (9.0-12.0) sec INR 1.4 H (<1.2) Chloride (98-107) mmol/L BUN (9-20) mg/dL Creatinine (0.66-1.25) mg/dL Glucose (74-99) mg/dL POC Glucose (mg/dL) (75-99) mg/dL Calcium (8.4-10.2) mg/dL Total Bilirubin (0.2-1.3) mg/dL AST (17-59) U/L ALT (4-49) U/L Total Protein (6.3-8.2) g/dL Albumin (3.5-5.0) g/dL Procalcitonin 1.59 H (0.02-0.09) ng/mL 08/29/20 08/29/20 08/29/20 Range/Units 08:52 12:06 16:43 WBC (3.8-10.6) k/uL RBC (4.30-5.90) m/uL Hgb (13.0-17.5) gm/dL Hct (39.0-53.0) % Plt Count (150-450) k/uL Lymphocytes # (1.0-4.8) k/uL PT (9.0-12.0) sec INR (<1.2) Chloride 97 L (98-107) mmol/L BUN 59 H (9-20) mg/dL Creatinine 9.81 H* (0.66-1.25) mg/dL Glucose 115 H (74-99) mg/dL POC Glucose (mg/dL) 143 H 112 H (75-99) mg/dL Calcium 7.5 L (8.4-10.2) mg/dL Total Bilirubin 1.5 H (0.2-1.3) mg/dL AST 211 H (17-59) U/L ALT 77 H (4-49) U/L Total Protein 6.0 L (6.3-8.2) g/dL Albumin 2.8 L (3.5-5.0) g/dL Procalcitonin (0.02-0.09) ng/mL 08/29/20 08/30/20 08/30/20 Range/Units 20:28 06:22 08:13 WBC (3.8-10.6) k/uL RBC 3.70 L (4.30-5.90) m/uL Hgb 10.8 L (13.0-17.5) gm/dL Hct 33.7 L (39.0-53.0) % Plt Count 102 L (150-450) k/uL Lymphocytes # 0.3 L (1.0-4.8) k/uL PT (9.0-12.0) sec INR (<1.2) Chloride (98-107) mmol/L BUN (9-20) mg/dL Creatinine (0.66-1.25) mg/dL Glucose (74-99) mg/dL POC Glucose (mg/dL) 121 H 101 H (75-99) mg/dL Calcium (8.4-10.2) mg/dL Total Bilirubin (0.2-1.3) mg/dL AST (17-59) U/L ALT (4-49) U/L Total Protein (6.3-8.2) g/dL Albumin (3.5-5.0) g/dL Procalcitonin (0.02-0.09) ng/mL Assessment and Plan Plan: 1. Acute: 19 infection with hypoxia requiring 2 L of oxygen: Oxygen, bronchodilators, dexamethasone, pulmonology consultation, input appreciated. Bilateral infiltrates , continue dexamethasone, zinc, vitamin C, vitamin D and melatonin. 2. Elevated troponin, likely associated with end-stage renal disease as well as COVID infection: cardiology consultation.ECHO EF 55%, monitor. 3. End-stage renal disease on hemodialysis secondary to hypertension and diabetes: Continue hemodialysis, consult nephrology input appreciated. Hemodialysis per schedule. 4. Diabetes type 2 with end-stage renal disease:continue on insulin sliding scale 5. Chronic atrial fibrillation: Continue outpatient medications and monitor, cardiology consultation. Continue Eliquis 6. Mild elevation in LFTs likely associated with: 19 infection: Continue to check liver enzymes. 7. Thrombocytopenia of unknown chronicity, monitor, improved from 75 up to 102. Admit to inpatient DVT prophylaxis: SCDs in the setting of thrombocytopenia Disposition: Home once clinically stable in 1-2 days
[2020-08-30] MEDS: CLOPIDOGREL 75 MG TAB PO SCH (09:44)
[2020-08-30] MEDS: ASCORBIC ACID 500 MG TAB PO SCH (09:44)
[2020-08-30] MEDS: DEXAMETHASONE SOD PHOSPHATE 10 MG/ML 1 ML VIAL IV SCH (09:44)
[2020-08-30] MEDS: PANTOPRAZOLE 40 MG TABLET PO SCH (09:44)
[2020-08-30] MEDS: CHOLECALCIFEROL 1,000 UNIT TAB PO SCH (09:44)
[2020-08-30] MEDS: ZINC SULFATE 220 MG CAP PO SCH (09:44)
[2020-08-30] MEDS: FAMOTIDINE 20 MG TAB PO SCH (09:44)
[2020-08-30] MEDS: ATORVASTATIN 40 MG TAB PO SCH (09:44)
[2020-08-30] MEDS: APIXABAN 2.5 MG TABLET PO SCH ×2 (09:45→20:15)
[2020-08-30] MEDS: EZETIMIBE 10 MG TAB PO SCH (09:45)
[2020-08-30 09:48] LABS: INR 1.4 (<1.2)
[2020-08-30 11:32] LABS: Glucose,Whole Blood 137 mg/dL (75-99)
--- NOTE | 2020-08-30 14:23 | P.PN ---
Subjective Progress Note Date: 08/30/20 Follow-up for ESRD Objective - Vital Signs Vital signs: Vital Signs Temp 99 F 08/30/20 12:00 Pulse 64 08/30/20 12:00 Resp 16 08/30/20 12:00 BP 136/64 08/30/20 12:00 Pulse Ox 94 L 08/30/20 12:00 Intake & Output 08/29/20 08/30/20 08/30/20 18:59 06:59 18:59 Intake Total 16 Output Total 0 Balance 16 Weight 108 kg Intake: IV 16 Heparin Sod,Pork in 0.45% 16 NaCl 25,000 unit In 0.45 % NaCl 1 250ml.bag @ 9. 174 UNITS/KG/HR 10 mls/hr IV .Q24H [facility] Rx#: [id number] Oral 0 Output: Hemodialysis 0 Other: # Voids 1 0 # Bowel Movements 1 1 - Exam Exam, deferred to primary team exam. Exam limited secondary to COVID. - Labs CBC & Chem 7: 08/30/20 08:13 08/30/20 08:13 Labs: Abnormal Lab Results - Last 24 Hours (Table) 08/29/20 08/29/20 08/30/20 Range/Units 16:43 20:28 06:22 RBC (4.30-5.90) m/uL Hgb (13.0-17.5) gm/dL Hct (39.0-53.0) % Plt Count (150-450) k/uL Lymphocytes # (1.0-4.8) k/uL PT (9.0-12.0) sec INR (<1.2) BUN (9-20) mg/dL Creatinine (0.66-1.25) mg/dL Glucose (74-99) mg/dL POC Glucose (mg/dL) 112 H 121 H 101 H (75-99) mg/dL Calcium (8.4-10.2) mg/dL Total Bilirubin (0.2-1.3) mg/dL AST (17-59) U/L ALT (4-49) U/L Total Protein (6.3-8.2) g/dL Albumin (3.5-5.0) g/dL 08/30/20 08/30/20 08/30/20 Range/Units 08:13 08:13 08:13 RBC 3.70 L (4.30-5.90) m/uL Hgb 10.8 L (13.0-17.5) gm/dL Hct 33.7 L (39.0-53.0) % Plt Count 102 L (150-450) k/uL Lymphocytes # 0.3 L (1.0-4.8) k/uL PT 14.0 H (9.0-12.0) sec INR 1.4 H (<1.2) BUN 37 H (9-20) mg/dL Creatinine 7.60 H* (0.66-1.25) mg/dL Glucose 115 H (74-99) mg/dL POC Glucose (mg/dL) (75-99) mg/dL Calcium 7.5 L (8.4-10.2) mg/dL Total Bilirubin 1.5 H (0.2-1.3) mg/dL AST 174 H (17-59) U/L ALT 70 H (4-49) U/L Total Protein 5.7 L (6.3-8.2) g/dL Albumin 2.5 L (3.5-5.0) g/dL 08/30/20 Range/Units 11:31 RBC (4.30-5.90) m/uL Hgb (13.0-17.5) gm/dL Hct (39.0-53.0) % Plt Count (150-450) k/uL Lymphocytes # (1.0-4.8) k/uL PT (9.0-12.0) sec INR (<1.2) BUN (9-20) mg/dL Creatinine (0.66-1.25) mg/dL Glucose (74-99) mg/dL POC Glucose (mg/dL) 137 H (75-99) mg/dL Calcium (8.4-10.2) mg/dL Total Bilirubin (0.2-1.3) mg/dL AST (17-59) U/L ALT (4-49) U/L Total Protein (6.3-8.2) g/dL Albumin (3.5-5.0) g/dL Assessment and Plan Assessment: #1 ESRD TTS #2 hypertension with ESRD #3 anemia with ESRD #4 metabolic bone disease with ESRD #5: COVID on 2L o2 Plan: #1 HD today, plan again on Tuesday and Tuesday as per outpatient schedule. #2 midodrine for hemodynamic support
--- NOTE | 2020-08-30 16:49 | P.PN ---
Subjective Progress Note Date: 08/30/20 Principal diagnosis: Acute covered 19 infection This is a very pleasant 55-year-old gentleman who has a history of end-stage renal disease on hemodialysis Tuesday, diabetes mellitus, hypertension, congestive heart failure, atrial fibrillation anticoagulated. He has been slow To the hospital with complaints of nausea vomiting or breath. He was found to have elevated troponins and transferred here for higher level of care. His symptoms started over 1-1/2 weeks ago. He reportedly tested positive for CoVID at [facility]. He feels he may have got it while attending [employer]. He is a lifelong nonsmoker. Chest x-ray here reveals low lung volumes and cardiomegaly with patchy left greater than right basilar acute infiltrate/atelectasis. He is seen today in consultation on the selective care unit. He is currently sitting up in bed. Awake and alert in no acute distress. He is maintaining O2 saturations up to 100% on room air. He's been afebrile. Hemodynamically stable. Echocardiogram reveals preserved left ventricular systolic function with an ejection fraction 50-55%. White count 3.4. Hemoglobin 11.1. Platelet count 75,000. Lymphocytes 0.5. Sodium 137. Potassium 4.4. Creatinine 9.81. ProBNP 10,100. Pro-calcitonin 1.59. Tropo nins 0.35, 0.32, 0.32. Heparin drip has been discontinued. Patient was reevaluated today on 08/30/20, patient seems to be doing better, he is now on room air, he had a T-max of 99.3 yesterday. His O2 saturation is 94% on room air. He is hemodynamically stable, and definitely improved over the la st 2 days. CBC is relatively normal his index lites are normal BUN is 37 and creatinine is 7.60. Objective - Vital Signs Vital signs: Vital Signs Temp 99 F 08/30/20 12:00 Pulse 64 08/30/20 12:00 Resp 16 08/30/20 12:00 BP 136/64 08/30/20 12:00 Pulse Ox 94 L 08/30/20 12:00 Intake & Output 08/29/20 08/30/20 08/30/20 18:59 06:59 18:59 Intake Total 16 Output Total 0 Balance 16 Weight 108 kg Intake: IV 16 Heparin Sod,Pork in 0.45% 16 NaCl 25,000 unit In 0.45 % NaCl 1 250ml.bag @ 9. 174 UNITS/KG/HR 10 mls/hr IV .Q24H [facility] Rx#: [id number] Oral 0 Output: Hemodialysis 0 Other: # Voids 1 0 # Bowel Movements 1 1 - Exam GENERAL EXAM: Alert, pleasant 55-year-old gentleman, on room air with O2 saturation 100%, comfortable in no apparent distress. HEAD: Normocephalic. EENT: PERRLA, EOMI, no icterus, no neck masses, no JVD, no stridor. CHEST: No chest wall deformity. LUNGS: Good breath sound bilaterally, no crackles or wheezes CVS: S1 and S2 normal with no audible murmur, regular rhythm. ABDOMEN: No hepatosplenomegaly, normal bowel sounds, no guarding or rigidity. SKIN: No rashes CENTRAL NERVOUS SYSTEM: No focal deficits, tone is normal in all 4 extremities. EXTREMITIES: There is no peripheral edema. No clubbing, no cyanosis. Peripheral pulses are intact. - Labs CBC & Chem 7: 08/30/20 08:13 08/30/20 08:13 Labs: Abnormal Lab Results - Last 24 Hours (Table) 08/29/20 08/29/20 08/30/20 Range/Units 16:43 20:28 06:22 RBC (4.30-5.90) m/uL Hgb (13.0-17.5) gm/dL Hct (39.0-53.0) % Plt Count (150-450) k/uL Lymphocytes # (1.0-4.8) k/uL PT (9.0-12.0) sec INR (<1.2) BUN (9-20) mg/dL Creatinine (0.66-1.25) mg/dL Glucose (74-99) mg/dL POC Glucose (mg/dL) 112 H 121 H 101 H (75-99) mg/dL Calcium (8.4-10.2) mg/dL Total Bilirubin (0.2-1.3) mg/dL AST (17-59) U/L ALT (4-49) U/L Total Protein (6.3-8.2) g/dL Albumin (3.5-5.0) g/dL 08/30/20 08/30/20 08/30/20 Range/Units 08:13 08:13 08:13 RBC 3.70 L (4.30-5.90) m/uL Hgb 10.8 L (13.0-17.5) gm/dL Hct 33.7 L (39.0-53.0) % Plt Count 102 L (150-450) k/uL Lymphocytes # 0.3 L (1.0-4.8) k/uL PT 14.0 H (9.0-12.0) sec INR 1.4 H (<1.2) BUN 37 H (9-20) mg/dL Creatinine 7.60 H* (0.66-1.25) mg/dL Glucose 115 H (74-99) mg/dL POC Glucose (mg/dL) (75-99) mg/dL Calcium 7.5 L (8.4-10.2) mg/dL Total Bilirubin 1.5 H (0.2-1.3) mg/dL AST 174 H (17-59) U/L ALT 70 H (4-49) U/L Total Protein 5.7 L (6.3-8.2) g/dL Albumin 2.5 L (3.5-5.0) g/dL 08/30/20 Range/Units 11:31 RBC (4.30-5.90) m/uL Hgb (13.0-17.5) gm/dL Hct (39.0-53.0) % Plt Count (150-450) k/uL Lymphocytes # (1.0-4.8) k/uL PT (9.0-12.0) sec INR (<1.2) BUN (9-20) mg/dL Creatinine (0.66-1.25) mg/dL Glucose (74-99) mg/dL POC Glucose (mg/dL) 137 H (75-99) mg/dL Calcium (8.4-10.2) mg/dL Total Bilirubin (0.2-1.3) mg/dL AST (17-59) U/L ALT (4-49) U/L Total Protein (6.3-8.2) g/dL Albumin (3.5-5.0) g/dL Assessment and Plan Assessment: Impression: Acute covid 19 infection,, outside window for remdesivir. End-stage renal disease. Chronic atrial fibrillation on Eliquis. Type 2 diabetes. History of coronary artery disease and previous stent placement. Benign essential hypertension. Elevated Inflammatory Covid 19 markers. Recommendation: Continue the cocktail for Covid 19 pneumonitis. Patient is presently on room air, Consider discharge planning in the next 24 hours Time with Patient: Less than 30
[2020-08-30 17:02] LABS: Glucose,Whole Blood 208 mg/dL (75-99)
[2020-08-30] MEDS ORDERED: DIPHENOX-ATROP 2.5-0.025 MG 1 EACH TAB PO PRN (19:36)
[2020-08-30] MEDS: FENOFIBRATE 160 MG TAB PO SCH (20:15)
[2020-08-30] MEDS: MELATONIN 5 MG TABLET PO SCH (20:15)
[2020-08-30 21:11] LABS: Glucose,Whole Blood 176 mg/dL (75-99)
[2020-08-30 22:45] VITALS: RESP 20
[2020-08-31] MEDS: ALBUTEROL HFA INHALER INHALATION SCH ×3 (01:37→12:17)
[2020-08-31 06:16] LABS: Albumin 2.5 g/dL (3.5-5.0); Calcium 8.1 mg/dL (8.4-10.2); Potassium 4.5 mmol/L (3.5-5.1); Total Bilirubin 1.7 mg/dL (0.2-1.3); Total Protein 5.6 g/dL (6.3-8.2)
[2020-08-31 06:18] LABS: INR 1.4 (<1.2); Prothrombin Time 14.3 sec (9.0-12.0)
[2020-08-31 06:51] LABS: Basophils % (A) 0 %; Eosinophils % (A) 0 %; HCT 33.7 % (39.0-53.0); HGB 10.7 gm/dL (13.0-17.5); Lymphocytes # (A) 0.5 k/uL (1.0-4.8); Lymphocytes % (A) 13 %; MCH 29.4 pg (25.0-35.0); MCHC 31.8 g/dL (31.0-37.0); MCV 92.3 fL (80.0-100.0); Mean Platelet Volume 7.5; Monocytes # (A) 0.2 k/uL (0-1.0); Monocytes % (A) 6 %; Neutrophils # (A) 2.8 k/uL (1.3-7.7); Neutrophils % (A) 80 %; RBC 3.65 m/uL (4.30-5.90); RDW 15.5 % (11.5-15.5); WBC 3.6 k/uL (3.8-10.6)
[2020-08-31 07:50] LABS: Glucose,Whole Blood 98 mg/dL (75-99)
[2020-08-31] MEDS: INSULIN ASPART (NovoLOG) 100 UNIT/ML VIAL SQ SCH ×2 (08:11→11:40)
[2020-08-31] MEDS: DEXAMETHASONE SOD PHOSPHATE 10 MG/ML 1 ML VIAL IV SCH (08:20)
[2020-08-31] MEDS: CHOLECALCIFEROL 1,000 UNIT TAB PO SCH (08:21)
[2020-08-31] MEDS: ASCORBIC ACID 500 MG TAB PO SCH (08:21)
[2020-08-31] MEDS: ZINC SULFATE 220 MG CAP PO SCH (08:21)
[2020-08-31] MEDS: CLOPIDOGREL 75 MG TAB PO SCH (08:21)
[2020-08-31] MEDS: PANTOPRAZOLE 40 MG TABLET PO SCH (08:21)
[2020-08-31] MEDS: EZETIMIBE 10 MG TAB PO SCH (08:21)
[2020-08-31] MEDS: ATORVASTATIN 40 MG TAB PO SCH (08:21)
[2020-08-31] MEDS: APIXABAN 2.5 MG TABLET PO SCH (08:21)
[2020-08-31 08:56] LABS: Platelet Count 99 k/uL (150-450)
[2020-08-31] MEDS ORDERED: FAMOTIDINE 20 MG TAB PO SCH (09:00)
[2020-08-31 10:02] VITALS: BP 155/68; PULSE 77; TEMP 98.5
[2020-08-31 11:34] LABS: Glucose,Whole Blood 128 mg/dL (75-99)
--- NOTE | 2020-08-31 13:00 | P.DS ---
Providers Date of admission: 08/28/20 13:34 Expected date of discharge: 08/31/20 Attending physician: Elisha Brooks MD Consults: 08/28/20 13:36 Consult Physician Urgent Consulting Provider: [facility] Consult Reason/Comments: NSTEMI Do you want consulting provider notified?: Yes 08/28/20 13:37 Consult Physician Urgent Consulting Provider: Disha Akers Consult Reason/Comments: ESRD on HD Do you want consulting provider notified?: Yes 08/28/20 14:14 Consult Physician Urgent Consulting Provider: Curt Hamilton Consult Reason/Comments: COVID Do you want consulting provider notified?: Yes Primary care physician: Physician Nonstaff Patient Condition at Discharge: Stable Plan - Discharge Summary Discharge Rx Participant: Yes New Discharge Prescriptions: Continue Diphenoxylate HCl/Atropine [Lomotil 2.5-0.025 mg Tablet] 1 tab PO Q8H PRN PRN Reason: Diarrhea Midodrine HCl [ProAmatine] 5 - 10 mg PO DAILY PRN PRN Reason: Hypotension Fenofibrate [Lofibra] 145 mg PO HS Ezetimibe [Zetia] 10 mg PO DAILY Cinacalcet HCl 30 mg PO MOTUWETHFR Pantoprazole Sodium [Protonix] 40 mg PO DAILY Clopidogrel [Plavix] 75 mg PO DAILY Apixaban [Eliquis] 2.5 mg PO BID Calcium Acetate [PhosLo] 2,001 mg PO TID-W/MEALS sitaGLIPtin [Januvia] 25 mg PO DAILY Atorvastatin [Lipitor] 40 mg PO DAILY Discharge Medication List Apixaban [Eliquis] 2.5 mg PO BID 08/28/20 [History] Atorvastatin [Lipitor] 40 mg PO DAILY 08/28/20 [History] Calcium Acetate [PhosLo] 2,001 mg PO TID-W/MEALS 08/28/20 [History] Cinacalcet HCl 30 mg PO MOTUWETHFR 08/28/20 [History] Clopidogrel [Plavix] 75 mg PO DAILY 08/28/20 [History] Diphenoxylate HCl/Atropine [Lomotil 2.5-0.025 mg Tablet] 1 tab PO Q8H PRN 08/28/20 [History] Ezetimibe [Zetia] 10 mg PO DAILY 08/28/20 [History] Fenofibrate [Lofibra] 145 mg PO HS 08/28/20 [History] Midodrine HCl [ProAmatine] 5 - 10 mg PO DAILY PRN 08/28/20 [History] Pantoprazole Sodium [Protonix] 40 mg PO DAILY 08/28/20 [History] sitaGLIPtin [Januvia] 25 mg PO DAILY 08/28/20 [History] Follow up Appointment(s)/Referral(s): Nonstaff,Physician [Primary Care Provider] - 1-2 days Discharge Disposition: HOME SELF-CARE
== END 2020-08-31 13:53 | disposition home or self-care (01) | DRG 177 ==
LOC: EC 11:23 → 3SCARD 13:34 → 4SSUR 08-30 21:01
PROVIDERS: ADMIT Internal Medicine; ATTEND Internal Medicine
PROC: 5A1D70Z Performance of Urinary Filtration, Intermittent, Less than 6 Hours Per Day (ICD-10-PCS; principal; 2020-08-28)
DX: U07.1 COVID-19 (principal); N18.6 End stage renal disease; I13.2 Hypertensive heart and chronic kidney disease with heart failure and with stage 5 chronic kidney disease, or end stage renal disease; I48.19 Other persistent atrial fibrillation; J98.11 Atelectasis; I25.10 Atherosclerotic heart disease of native coronary artery without angina pectoris; D63.1 Anemia in chronic kidney disease; F32.9 Major depressive disorder, single episode, unspecified; I50.9 Heart failure, unspecified; H54.8 Legal blindness, as defined in USA; E88.89 Other specified metabolic disorders; E78.5 Hyperlipidemia, unspecified; E11.22 Type 2 diabetes mellitus with diabetic chronic kidney disease; D69.6 Thrombocytopenia, unspecified; Z88.5 Allergy status to narcotic agent; Z79.84 Long term (current) use of oral hypoglycemic drugs; Z79.01 Long term (current) use of anticoagulants; Z83.3 Family history of diabetes mellitus; Z79.899 Other long term (current) drug therapy; Z79.02 Long term (current) use of antithrombotics/antiplatelets; Z99.2 Dependence on renal dialysis; Z95.5 Presence of coronary angioplasty implant and graft; Z86.14 Personal history of Methicillin resistant Staphylococcus aureus infection; Z98.890 Other specified postprocedural states; Z83.6 Family history of other diseases of the respiratory system
CPT/HCPCS: 36415; 71045; 80053; 82728; 83605; 83615; 83880; 84145; 84484; 85025; 85379; 85610; 85730; 90935; 93005; 93306; 99285

== ENCOUNTER 2021-11-27 07:58 | Emergency (ER) | payer MEDICARE, OTHER ==
[2021-11-27 08:16] VITALS: RESP 18
[2021-11-27] MEDS ORDERED: LIDOCAINE 1%-EPI 1:100,000 20 ML VIAL SQ STA ×2 (08:36→12:37)
--- NOTE | 2021-11-27 08:42 | ED ---
General Adult HPI - General Chief complaint: Recheck/Abnormal Lab/Rx Stated complaint: Bleeding Port Time Seen by Provider: 11/27/21 08:00 Source: EMS Mode of arrival: EMS Limitations: physical limitation - History of Present Illness Initial comments: Patient is a 56-year-old male with past medical history of A. fib, diabetes, renal disease on hemodialysis who presents the emergency department with bleeding around his permacath site. Patient had a fistula in his right radiocephalic vein. He was seen by the [facility] yesterday and had a permacath placed to his right anterior chest wall by a Dr. Edward Maldonado. He states that he went home and the area began losing around 11 PM last night. He was concerned that he slept wrong. He does reside at a care facility and they changed his bandage multiple times last night. He then went to dialysis this morning where this they continued to lose and they were refusing to do his dialysis. They transferred him from the Center to our hospital. He does take Plavix and Eliquis for a cardiac stent and PE. He was told to not stop these medications. He pending a right brachiocephalic fistula however this has not been scheduled just yet. No other alleviating, precipitating or modifying factors - Related Data Home Medications Medication Instructions Recorded Confirmed Apixaban [Eliquis] 2.5 mg PO BID 08/28/20 08/28/20 Atorvastatin [Lipitor] 40 mg PO DAILY 08/28/20 08/28/20 Calcium Acetate [PhosLo] 2,001 mg PO TID-W/MEALS 08/28/20 08/28/20 Cinacalcet HCl 30 mg PO MOTUWETHFR 08/28/20 08/28/20 Clopidogrel [Plavix] 75 mg PO DAILY 08/28/20 08/28/20 Diphenoxylate HCl/Atropine 1 tab PO Q8H PRN 08/28/20 08/28/20 [Lomotil 2.5-0.025 mg Tablet] Ezetimibe [Zetia] 10 mg PO DAILY 08/28/20 08/28/20 Fenofibrate [Lofibra] 145 mg PO HS 08/28/20 08/28/20 Midodrine HCl [ProAmatine] 5 - 10 mg PO DAILY PRN 08/28/20 08/28/20 Pantoprazole Sodium [Protonix] 40 mg PO DAILY 08/28/20 08/28/20 sitaGLIPtin [Januvia] 25 mg PO DAILY 08/28/20 08/28/20 Allergies Allergy/AdvReac Type Severity Reaction Status Date / Time codeine AdvReac Nausea & Verified 11/27/21 08:16 Vomiting Review of Systems ROS Statement: Those systems with pertinent positive or pertinent negative responses have been documented in the HPI. ROS Other: All systems not noted in ROS Statement are negative. Past Medical History Past Medical History: Atrial Fibrillation, Diabetes Mellitus, Dialysis, Hypertension, Renal Disease Additional Past Medical History / Comment(s): legally blind History of Any Multi-Drug Resistant Organisms: MRSA Date of last positivie culture/infection: 2009 MDRO Source:: nose Past Surgical History: Heart Catheterization With Stent Additional Past Surgical History / Comment(s): fistula-right forearm Past Anesthesia/Blood Transfusion Reactions: No Reported Reaction Date of Last Stent Placement:: 2016 Past Psychological History: Depression Smoking Status: Never smoker Past Alcohol Use History: None Reported Past Drug Use History: None Reported - Past Family History Father Family Medical History: Pneumonia Mother Family Medical History: Cancer, Diabetes Mellitus, Dialysis General Exam Limitations: physical limitation General appearance: alert, in no apparent distress Head exam: Present: atraumatic, normocephalic, normal inspection Eye exam: Present: other (whitening of corneas - bilateral chronic blindness). Absent: scleral icterus, conjunctival injection, periorbital swelling ENT exam: Present: normal exam, mucous membranes moist Neck exam: Present: normal inspection. Absent: tenderness, meningismus, lymphadenopathy Respiratory exam: Present: normal lung sounds bilaterally, other (chest wall permacath - right sided. blood oozing around most superior aspect of catheter. no pulsitile bleed 3 sutures all intact. no hematoma. Incisions new). Absent: respiratory distress, wheezes, rales, rhonchi, stridor Cardiovascular Exam: Present: regular rate, normal rhythm, normal heart sounds. Absent: systolic murmur, diastolic murmur, rubs, gallop, clicks GI/Abdominal exam: Present: soft, normal bowel sounds. Absent: distended, tenderness, guarding, rebound, rigid Extremities exam: Present: normal inspection, full ROM, normal capillary refill. Absent: tenderness, pedal edema, joint swelling, calf tenderness Back exam: Present: normal inspection Neurological exam: Present: alert, oriented X3, CN II-XII intact Psychiatric exam: Present: normal affect, normal mood Skin exam: Present: warm, dry, intact, normal color. Absent: rash Course Vital Signs 11/27/21 11/27/21 11/27/21 08:03 12:04 13:00 Temperature 98.4 F Pulse Rate 82 64 Respiratory 18 18 18 Rate Blood Pressure 117/26 115/44 Blood Pressure [Left Arm] O2 Sat by Pulse 99 97 Oximetry 11/27/21 11/27/21 11/27/21 14:28 15:17 16:09 Temperature 98.0 F Pulse Rate 67 67 Respiratory 18 18 Rate Blood Pressure 87/45 89/55 Blood Pressure 90/56 [Left Arm] O2 Sat by Pulse 98 98 Oximetry - Reevaluation(s) Reevaluation #1: 11/27/21 09:[address] Scott who will order patient's dialysis. Also recommended I give DDAVP 0.3 mcg/kg 11/27/21 09:39 Medical Decision Making - Medical Decision Making Upon arrival the patient is placed into room 6. A thorough history and physical exam was performed. Patient does have slight bruising around his permacath site. We did place a pressure dressing to the site. This is left in place for approximately 20 minutes however patient continues to saturate his dressing. Because of this dressing is removed. I did use lidocaine with epinephrine and injected 5 mL near the catheter injection site. Patient does have considerable slowing of the bleeding. I called and spoke with Dr. Scott. Recommended I give the patient 0.3 g per KG of desmopressin. Patient is infused this. Dr. Scott who does arrange the patient's dialysis. He will be discharged after his treatment is completed at this time. Patient is instructed to follow up with his vascular surgeon as well as his dialysis clinic on Tuesday. Return for any new or worsening symptoms During treatment, patients catheter beings to bleed again. Top u- shaped suture removed and figure 8 stitch placed using 3-0 nylon. Bleeding controlled throughout remainder of treatment and prior to discharge home. Disposition Clinical Impression: End stage renal disease on dialysis, Bleeding due to dialysis catheter placement Disposition: HOME SELF-CARE Condition: Stable Instructions (If sedation given, give patient instructions): Perma-cath Placement (DC) Additional Instructions: Please follow-up with your vascular surgeon and notify them of your bleeding issue. Please also follow up for your regularly scheduled dialysis on Tuesday Is patient prescribed a controlled substance at d/c from ED?: No Referrals: Mayo Lucero MD [Primary Care Provider] - 1-2 days Time of Disposition: 10:43
[2021-11-27] MEDS ORDERED: DESMOPRESSIN ACETATE 30 MCG in SODIUM CHLORIDE 0.9% 50 ML IVPB ONE (09:28)
--- NOTE | 2021-11-27 10:37 | P.NPCON ---
History of Present Illness - Reason for Consult end stage renal disease - History of Present Illness Reason for consultation: End-stage renal disease History of present illness: Patient is a 56-year-old male seen in consultation for end-stage renal disease. He is maintained on hemodialysis on Tuesday schedule. Patient was seen and examined in the emergency room. Patient has a right upper extremity AV fistula but the fistula hasn't been working too well. He had a permacath placed yesterday by vascular surgeon out of [place], [place]. He went to hemodialysis treatment this morning and was noted to have oozing from the permacath site was sent to the hospital. He is currently seen while undergoing hemodialysis. Oozing has improved. He is also receiving IV DDAVP. Denies chest pain or shortness of breath. He's been on dialysis in 2008. Patient has long-standing history of diabetes and has diabetic retinopathy. Patient is legally blind. Patient is stable hemodynamically. No fever or chills. No vomiting or diarrhea. He is on room air. Vital signs are stable. General: The patient appeared well nourished and normally developed. HEENT: Head exam is unremarkable. LUNGS: Breath sounds decreased. HEART: Rate and Rhythm are regular. ABDOMEN: Soft, no distention. EXTREMITITES: No edema. Chronic changes noted. Past Medical History Past Medical History: Atrial Fibrillation, Diabetes Mellitus, Dialysis, Hypertension, Renal Disease Additional Past Medical History / Comment(s): legally blind History of Any Multi-Drug Resistant Organisms: MRSA Date of last positivie culture/infection: 2009 MDRO Source:: nose Past Surgical History: Heart Catheterization With Stent Additional Past Surgical History / Comment(s): fistula-right forearm Past Anesthesia/Blood Transfusion Reactions: No Reported Reaction Date of Last Stent Placement:: 2016 Past Psychological History: Depression Smoking Status: Never smoker Past Alcohol Use History: None Reported Past Drug Use History: None Reported - Past Family History Father Family Medical History: Pneumonia Mother Family Medical History: Cancer, Diabetes Mellitus, Dialysis Medications and Allergies Home Medications Medication Instructions Recorded Confirmed Type Apixaban [Eliquis] 2.5 mg PO BID 08/28/20 08/28/20 History Atorvastatin [Lipitor] 40 mg PO DAILY 08/28/20 08/28/20 History Calcium Acetate [PhosLo] 2,001 mg PO TID-W/MEALS 08/28/20 08/28/20 History Cinacalcet HCl 30 mg PO MOTUWETHFR 08/28/20 08/28/20 History Clopidogrel [Plavix] 75 mg PO DAILY 08/28/20 08/28/20 History Diphenoxylate HCl/Atropine 1 tab PO Q8H PRN 08/28/20 08/28/20 History [Lomotil 2.5-0.025 mg Tablet] Ezetimibe [Zetia] 10 mg PO DAILY 08/28/20 08/28/20 History Fenofibrate [Lofibra] 145 mg PO HS 08/28/20 08/28/20 History Midodrine HCl [ProAmatine] 5 - 10 mg PO DAILY PRN 08/28/20 08/28/20 History Pantoprazole Sodium [Protonix] 40 mg PO DAILY 08/28/20 08/28/20 History sitaGLIPtin [Januvia] 25 mg PO DAILY 08/28/20 08/28/20 History Allergies Allergy/AdvReac Type Severity Reaction Status Date / Time codeine AdvReac Nausea & Verified 11/27/21 08:16 Vomiting Physical Exam Vitals: Vital Signs Temp Pulse Resp BP Pulse Ox 11/27/21 08:03 98.4 F 82 18 117/26 99 Intake and Output 11/26/21 11/27/21 11/27/21 22:59 06:59 14:59 Other: Weight 99.79 kg Assessment and Plan Plan: Assessment: 1. End-stage renal disease maintained on hemodialysis on Tuesday schedule. 2. Oozing from the [facility] site. Improved. 3. Diabetes mellitus. 4. Chronic kidney disease mineral bone disease maintained on Sensipar and PhosLo. Plan: Currently seen while undergoing hemodialysis. Midodrine 10 mg if needed for hypotension during dialysis. Receiving IV DDAVP. Plan for discharge after dialysis. Thank you for the consultation. I will continue to follow the patient with you during his hospital stay
[2021-11-27] MEDS ORDERED: diphenhydrAMINE 50 MG/ML 1 ML VIAL IVP STA (11:04)
[2021-11-27] MEDS: MIDODRINE 5 MG TAB PO PRN ×2 (11:21→16:08)
[2021-11-27] MEDS ORDERED: THROMBIN (BOVINE) 5,000 UNIT VIAL TOPICAL STA ×2 (11:34→12:36)
[2021-11-27] MEDS ORDERED: GELATIN SPONGE,ABSORB (SMALL) 1 EACH SPONGE TOPICAL STA (11:38)
[2021-11-27] MEDS ORDERED: LORazepam 1 MG TAB PO STA (15:10)
[2021-11-27 15:24] VITALS: PULSE 67; TEMP 98
[2021-11-27 16:11] VITALS: BP 89/55
== END 2021-11-27 16:42 | disposition home or self-care (01) ==
LOC: EC 07:58
DX: E11.22 Type 2 diabetes mellitus with diabetic chronic kidney disease (principal); I12.0 Hypertensive chronic kidney disease with stage 5 chronic kidney disease or end stage renal disease; N18.6 End stage renal disease; T82.838A Hemorrhage due to vascular prosthetic devices, implants and grafts, initial encounter; I48.91 Unspecified atrial fibrillation; F32.A Depression, unspecified; Z99.2 Dependence on renal dialysis; Z79.01 Long term (current) use of anticoagulants; Z79.02 Long term (current) use of antithrombotics/antiplatelets; Z88.5 Allergy status to narcotic agent; X58.XXXA Exposure to other specified factors, initial encounter
CPT/HCPCS: 99284 ×2; 96374 ×2; G0257; J1200; J2597; 90935